=== PATIENT | male | born 1945 | race Two or more races ===

== ENCOUNTER 2024-05-26 08:57 | Emergency (ER) | payer OTHER, SELFPAY ==
[2024-05-26 09:04] VITALS: BP 148/82; PULSE 67; RESP 20; TEMP 36.7; O2SAT 98; BMI 26.9
--- NOTE | 2024-05-26 09:15 | EKG_ITS ---
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
--- NOTE | 2024-05-26 09:16 | PD.EDRME ---
Rapid Medical Screening Exam RME Arrival date/time: 05/26/24 08:57 79-year-old male presents to the emergency department complains of upper abdominal pain nausea vomiting Chief Complaint: Abdominal Pain Time Seen by Provider: 05/26/24 09:05 Vital signs: Vital Signs Temperature 98.1 F 05/26/24 09:04 Pulse Rate 67 05/26/24 09:04 Respiratory Rate 20 05/26/24 09:04 Blood Pressure 148/82 H 05/26/24 09:04 Pulse Oximetry (%) 98 05/26/24 09:04 Oxygen Delivery Method Room Air 05/26/24 09:04
[2024-05-26 10:00] VITALS: BP 138/81; PULSE 86; RESP 18; TEMP 36.7; O2SAT 99
[2024-05-26 10:06] VITALS: BP 144/88; PULSE 90; RESP 18; TEMP 37.1; O2SAT 96
[2024-05-26 10:06] LABS: Basophils # (Auto) 0.1 Thou/mm3 (0.0-0.2); Basophils % (Auto) 1 % (0-2.5); Eosinophils # (Auto) 0.1 Thou/mm3 (0.0-0.5); Eosinophils % (Auto) 1 % (0-10); Hematocrit 42.4 % (41.0-53.0); Hemoglobin 14.8 g/dL (13.5-16.0); Immature Granulocytes % (Auto) 1 % (0-0); Immature Granulocytes Auto 0.05 Thou/mm3 (0.00-0.00); Lymphocytes # (Auto) 1.1 Thou/mm3 (1.0-4.8); Lymphocytes % (Auto) 11 % (10-50); Mean Corpuscular HGB Conc 34.9 g/dl (31.0-37.0); Mean Corpuscular Hemoglobin 31.4 pg (25.0-35.0); Mean Corpuscular Volume 90 fL (80-100); Monocytes # (Auto) 0.6 Thou/mm3 (0.0-0.8); Monocytes % (Auto) 6 % (0-12); Neutrophils # (Auto) 7.9 Thou/mm3 (1.8-7.7); Neutrophils % (Auto) 81 % (37-80); Nucleated Red Blood Cell % 0 /100 WBC (0); Platelet Count 181 Thou/mm3 (140-440); RDW Standard Deviation 41.9 fL (35.1-43.9); Red Blood Count 4.72 Miln/mm3 (4.50-5.90); White Blood Count 9.7 Thou/mm3 (3.8-10.6)
--- NOTE | 2024-05-26 10:08 | EDNOTE_ITS ---
ED General RME/HPI General Chief complaint: Abdominal Pain Stated complaint: EPIGASTRIC/UPPER ABD PAIN; VOMITING YELLOW ; H/A Time Seen by Provider: 05/26/24 09:05 Arrival date/time: 05/26/24 08:57 RME / HPI RME / HPI narrative: 05/26/24 08:57 Chief complaint: Upper abdominal pain with associated nausea and vomiting HPI: Patient is a 79-year-old male with past medical history of osteoarthritis, presents to the emergency department complaints of epigastric abdominal pain with associated nausea and 2 episodes of vomiting. Patient's pain started around 3 AM this morning, which woke him up from his sleep, and was followed by 2 episodes of vomiting around 3:30 AM and 7 AM. He describes the vomitus as nonbloody nonbilious, yellowish clear in color. Pain which was initially 8/10 in intensity has not subsided completely. He denies any nausea in the ED, and endorses having an appetite. Patient's last meal was dinner yesterday, which he tolerated well. He denies any fever or other systemic symptoms at this time. He is otherwise very active and carries out activities of daily living independently. Past medical history: Osteoarthritis of bilateral knee Medication list: On [employer] herbal supplement for arthritic joint pains Past surgical history: Nil Allergies: NKFDA Social history: Marital?Status:? Tobacco?Use:?Denies ETOH?Use:?Denies Drug?Note:?Denies Social?History?Note:?Lives?at home with family Family history: Brother and father both now , of lung cancer secondary to chronic smoking. Denies any family history of sudden cardiac or strokes. Related Data Allergies Allergy/AdvReac Type Severity Reaction Status Date / Time No Known Allergies Allergy Verified 05/26/24 08:58 Review of Systems Review of Systems Narrative Review of Systems: GENERAL: Denies fevers/chills or diaphoresis. HEENT: Denies headache or visual/hearing changes. Denies nasal discharge. NEURO: Denies unusual weakness or difficulty speaking. CARDIO: Denies chest pain or palpitations. PULM: Denies SOB, coughing, or wheezing. GI: epigastric abdominal pain, N/V - now resolved. Denies C/D. Reports having BMs URO: Denies burning/itching/pain/urinary changes. MSK/EXT/SKIN: Denies joint/skeletal/muscle pain, issues/changes in upper or lower extremities, itchiness, or superficial pain. PSYCH: Cooperative, pleasant mood & affect. The rest of the review of systems is otherwise negative. ED Exam Narrative Physical exam: Constitutional Alert, oriented x3 and comfortable HEENT Vision grossly intact. Patent nares. Trachea midline. Respiratory Chest normal on inspection and clear to auscultation bilaterally. Cardiovascular S1 and S2 audible, RRR. No murmurs or carotid bruit. No gross JVD. Abdominal Soft and non tender to palpation in all quadrants. BS + Genitourinary No bladder tenderness, no flank pain. Normal to palpation. Musculoskeletal Extremities tone within normal limits. No LE edema. Neurological CN II - XII grossly intact. Extremity motor and sensation grossly intact. Skin Warm, dry and intact. No apparent lesions. Psychiatric Patient has a good affect, is cooperative. Course Quality Measures none Orders Category Date Time Status EKG (ED ONLY) *Do not use* NOW Care 05/26/24 09:16 Completed EKG (ED Only) Stat Exams 05/26/24 09:15 Ordered US gall bladder Stat Exams 05/26/24 09:15 Stop Req CBC Stat Lab 05/26/24 09:54 Completed Comprehensive Metabolic Panel Stat Lab 05/26/24 09:54 Completed Lipase Stat Lab 05/26/24 09:54 Completed Troponin I Stat Lab 05/26/24 09:54 Completed UA, C/S IF [Urinalysis, C/S if Indicated] Stat Lab 05/26/24 10:34 Completed Vital Signs Vital signs: Vital Signs Temperature 98.1 F 05/26/24 09:04 Pulse Rate 67 05/26/24 09:04 Respiratory Rate 20 05/26/24 09:04 Blood Pressure 148/82 H 05/26/24 09:04 Pulse Oximetry (%) 98 05/26/24 09:04 Oxygen Delivery Method Room Air 05/26/24 09:04 [facility] Patient data External records reviewed:: None Clinical information provided by:: patient and family Social determinants that could affect healthcare access:: none Patient has the following chronic illnesses:: Osteoarthritis of bilateral knee How is presenting disease/condition affected by chronic disease/condition?: e xacerbated by Evaluation data The following diagnostics were reviewed and interpreted by me:: lab results, radiology exam(s) and EKG tracing(s) Lab and/or radiology exams considered but not ordered:: CT Abdo Interpretation Summary: Abdominal pain likely in the setting of [employer] Fermín herbal supplement, which has been marked by FDA for containing heavy doses of NSAID and glucocorticoid. Patient was counseled extensively on discontinuing but said supplement, and follow-up with PCP within 1 week from discharge Medications Medications considered but not ordered:: CT Abdomen Medication administrations:: P.O. route only Consultations Consultation(s) initiated? (list below): No Consultation #1 (Physician, Specialty, Details): None Diagnosis Differential Diagnosis ED Complaint MDM: Gastric ulcer Most likely diagnosis given after review of the tests above:: Gastritis secondary to [employer]ri Fermín herbal supplement containing heavy doses of NSAIDs and glucocorticoid - multiple FDA warnings Will discharge on Omeprazole 40mg daily x 4 weeks Admission Indicated Admission indicated?: not indicated Explain why admission is indicated or not indicated:: Abdominal pain resolved, patient completely asymptomatic in the ED Admission Request Was there a request for admission?: No Disposition Plan Disposition Plan: Discharge Discharge Attestation Discharge Attestation: The patient and all family members were given an opportunity to ask questions and understood the discharge instructions. Discharge instructions specifically effects, indications for sooner follow up or return to the emergency department, and the expected course of current diagnosis. Patient condition: Stable Medical Decision Making MDM Narrative MDM Narrative: Patient is a 79-year-old male with past medical history of osteoarthritis, who presented with epigastric abdominal pain with 2 episodes of vomiting. All imaging and laboratory workup unremarkable. Diagnosis: Gastritis secondary to Artri Fermín herbal supplement containing heavy doses of NSAIDs and glucocorticoid - multiple FDA warnings Plan: Will discharge on Omeprazole 40mg daily x 4 weeks Recommend close follow-up with PCP and immediate discontinuation of the medication. Differential Diagnosis Differential Diagnosis: Gastric ulcer Lab Data 05/26/24 09:54 05/26/24 09:54 Labs: Lab Results 05/26/24 05/26/24 Range/Units 09:54 10:34 WBC 9.7 (3.8-10.6) Thou/mm3 RBC 4.72 (4.50-5.90) Miln/mm3 Hgb 14.8 (13.5-16.0) g/dL Hct 42.4 (41.0-53.0) % MCV 90 (80-100) fL MCH 31.4 (25.0-35.0) pg MCHC 34.9 (31.0-37.0) g/dl RDW Std Deviation 41.9 (35.1-43.9) fL Plt Count 181 (140-440) Thou/mm3 Neut % (Auto) 81 H (37-80) % Lymph % (Auto) 11 (10-50) % [place] % (Auto) 6 (0-12) % Eos % (Auto) 1 (0-10) % Baso % (Auto) 1 (0-2.5) % Neut # (Auto) 7.9 H (1.8-7.7) Thou/mm3 Lymph # (Auto) 1.1 (1.0-4.8) Thou/mm3 [place] # (Auto) 0.6 (0.0-0.8) Thou/mm3 Eos # (Auto) 0.1 (0.0-0.5) Thou/mm3 Baso # (Auto) 0.1 (0.0-0.2) Thou/mm3 Immature Gran # (Auto) 0.05 H (0.00-0.00) Thou/mm3 Absolute Nucleated RBC 0.00 (0.00-0.00) Thou/mm3 Immature Gran % 1 H (0-0) % Nucleated RBC % 0 (0) /100 WBC Sodium 138 (136-145) mMol/L Potassium 3.7 (3.4-5.1) mMol/L Chloride 104 (98-107) mMol/L Carbon Dioxide 26.1 (20.0-31.0) mMol/L Anion Gap 8 (7-16) BUN 10 (9-23) mg/dL Creatinine 1.2 (0.6-1.3) mg/dL Estim Creat Clear Calc 45.0 L (>60) mL/min eGFR > 60 (60 - ) See Note BUN/Creatinine Ratio 8 L (12-20) Ratio Glucose 120 H (74-106) mg/dL Calculated Osmolality 275 (275-295) Calcium 10.0 (8.3-10.6) mg/dL Corrected Calcium 10.0 (8.5-10.1) mg/dL Total Bilirubin 0.5 (0.3-1.2) mg/dL AST 23 (0-34) U/L ALT 20 (10-49) U/L Alkaline Phosphatase 93 (46-116) U/L Troponin I < 0.002 (0.0-0.045) ng/mL Total Protein 7.4 (5.7-8.2) gm/dL Albumin 4.2 (3.4-4.8) gm/dL Globulin 3.2 (2.3-3.5) gm/dL Albumin/Globulin Ratio 1.3 (1.2-2.2) Lipase 66 H (12-53) U/L Ur Collection Type Clean Catch Urine Color Yellow (Lt Yel-Yel) Urine Clarity Clear (Clear/Hazy) Urine pH 5.5 (5.0-7.0) Ur Specific [place] 1.026 (1.001-1.035) Urine Protein Trace (Neg - Trace) Urine Glucose (UA) Negative (Negative) Urine Ketones Negative (Negative) Urine Blood Negative (Negative) Urine Nitrite Negative (Negative) Urine Bilirubin Negative (Negative) Urine Urobilinogen (Auto) Negative (0.0-1.0) mg/dL Ur Leukocyte Esterase Negative (Negative) Urine RBC 1 (0-3) /hpf Urine WBC 1 (0-5) /hpf Ur Squamous Epith Cells < 1 (0-5) /hpf Urine Bacteria None (None) Hyaline Casts < 1 (0-1) /hpf Ur Culture Indicated? Not Indicated Discharge Plan Plan Patient Disposition: HOME (Self Care) Patient condition on transfer: Stable Prescriptions/Referrals Referrals: Darío Byrnes MD [Primary Care Provider] - In 1 week Problem List Clinical Impression: Abdominal pain Patient/Caregiver Discharge Instructions Discharge Activity: resume usual activities Education Materials: Abdominal Pain, Medicine for Pain Print Language: Bermudian Stand Alone Forms: Lawanda Award Info., Patient Portal Info Letter
[2024-05-26 10:22] LABS: Alanine Aminotransferase 20 U/L (10-49); Albumin, Serum 4.2 gm/dL (3.4-4.8); Albumin/Globulin Ratio 1.3 (1.2-2.2); Alkaline Phosphatase 93 U/L (46-116); Anion Gap 8 (7-16); Aspartate Amino Transferase 23 U/L (0-34); BUN/Creatinine Ratio 8 Ratio (12-20); Bilirubin,Total 0.5 mg/dL (0.3-1.2); Blood Urea Nitrogen 10 mg/dL (9-23); Carbon Dioxide 26.1 mMol/L (20.0-31.0); Chloride 104 mMol/L (98-107); Creatinine (Component) 1.2 mg/dL (0.6-1.3); Globulin 3.2 gm/dL (2.3-3.5); Glucose 120 mg/dL (74-106); Lipase 66 U/L (12-53); Osmolality,Calculated 275 (275-295); Potassium 3.7 mMol/L (3.4-5.1); Sodium 138 mMol/L (136-145); Total Protein 7.4 gm/dL (5.7-8.2); Troponin I < 0.002 ng/mL (0.0-0.045); eGFR > 60 See Note
[2024-05-26 10:39] LABS: Collection Type, Urine Clean Catch
[2024-05-26 10:50] LABS: Bilirubin,Urine Negative (Negative); Blood,Urine Negative (Negative); Clarity,Urine Clear (Clear/Hazy); Color,Urine Yellow (Lt Yel-Yel); Culture Indicated,Urine Not Indicated; Glucose, Urine Negative (Negative); Hyaline Casts,Urine < 1 /hpf (0-1); Ketones,Urine Negative (Negative); Leukocyte Esterase,Urine Negative (Negative); Nitrite,Urine Negative (Negative); PH,Urine 5.5 (5.0-7.0); Protein,Urine Trace (Neg - Trace); RBC,Urine 1 /hpf (0-3); Specific Gravity,Urine 1.026 (1.001-1.035); Squamous Epithelial Cell,Urine < 1 /hpf (0-5); Urobilinogen,Urine Negative mg/dL (0.0-1.0); WBC,Urine 1 /hpf (0-5)
[2024-05-26 11:30] VITALS: BP 141/77; PULSE 77; RESP 16; TEMP 36.7; O2SAT 99
== END 2024-05-26 11:31 | disposition home or self-care (01) ==
PROVIDERS: Nurse Practitioner Primary Care; Emergency Provider Student in an Organized Health Care Education/Training Program; PCP Family Medicine
DX: R10.13 Epigastric pain (principal); R11.2 Nausea with vomiting, unspecified; M19.90 Unspecified osteoarthritis, unspecified site
CPT/HCPCS: 36415; 80053; 81001; 83690; 84484; 85025; 93005; 99284

== ENCOUNTER 2025-01-17 08:54 | Emergency (ER) | payer OTHER, SELFPAY ==
[2025-01-17 08:55] VITALS: BMI 22.2
[2025-01-17 09:07] VITALS: BP 142/83; PULSE 83; RESP 18; TEMP 36.6; O2SAT 98
[2025-01-17] MEDS: MG HYD/AL HYD/SIME (Maalox Reg) SUSP 30 ML UDC PO (10:21)
[2025-01-17] MEDS: LIDOCAINE VISCOUS 2% 15 ML UDC 10 ML PO (10:21)
--- NOTE | 2025-01-17 10:21 | PD.EDRME ---
Rapid Medical Screening Exam E Arrival date/time: 01/17/25 08:54 This is a 79-year-old male that comes into the emergency room with complaints of abdominal pain. Patient states he had a history of acid reflux and he thinks is just acid reflux bothering him. Patient has no nausea vomiting. Patient complains of burning in his throat and in his stomach. Patient states that he was having urinary issues but started taking some prostate supplements and is doing better. I have greeted and performed a focused initial assessment of this patient. Initial appropriate labs ordered at this time. A comprehensive ED assessment and evaluation of the patient and analysis of all test and completion of medical decision making process will be conducted by additional ED provider. Chief Complaint: Abdominal Pain Time Seen by Provider: 01/17/25 09:11 Vital signs: Vital Signs Temperature 97.8 F 01/17/25 09:07 Pulse Rate 83 01/17/25 09:07 Respiratory Rate 18 01/17/25 09:07 Blood Pressure 142/83 H 01/17/25 09:07 Pulse Oximetry (%) 98 01/17/25 09:07 Oxygen Delivery Method Room Air 01/17/25 09:07
[2025-01-17 10:22] LABS: Basophils # (Auto) 0.0 Thou/mm3 (0.0-0.2); Basophils % (Auto) 1 % (0-2.5); Eosinophils # (Auto) 0.2 Thou/mm3 (0.0-0.5); Eosinophils % (Auto) 2 % (0-10); Hematocrit 41.2 % (41.0-53.0); Hemoglobin 14.5 g/dL (13.5-16.0); Immature Granulocytes Auto 0.01 Thou/mm3 (0.00-0.00); Lymphocytes # (Auto) 1.5 Thou/mm3 (1.0-4.8); Lymphocytes % (Auto) 21 % (10-50); Mean Corpuscular HGB Conc 35.2 g/dl (31.0-37.0); Mean Corpuscular Hemoglobin 31.8 pg (25.0-35.0); Mean Corpuscular Volume 90 fL (80-100); Monocytes # (Auto) 0.5 Thou/mm3 (0.0-0.8); Monocytes % (Auto) 7 % (0-12); Neutrophils # (Auto) 4.9 Thou/mm3 (1.8-7.7); Neutrophils % (Auto) 69 % (37-80); Nucleated Red Blood Cell # 0.00 Thou/mm3 (0.00-0.00); Nucleated Red Blood Cell % 0 /100 WBC (0); Platelet Count 218 Thou/mm3 (140-440); RDW Standard Deviation 43.1 fL (35.1-43.9); Red Blood Count 4.56 Miln/mm3 (4.50-5.90); White Blood Count 7.1 Thou/mm3 (3.8-10.6)
[2025-01-17 10:25] LABS: Collection Type, Urine Voided; Squamous Epithelial Cell,Urine 0 /hpf (0-5)
[2025-01-17 10:58] LABS: Alanine Aminotransferase < 7 U/L (10-49); Albumin, Serum 4.1 gm/dL (3.4-4.8); Albumin/Globulin Ratio 1.3 (1.2-2.2); Alkaline Phosphatase 108 U/L (46-116); Anion Gap 11 (7-16); Aspartate Amino Transferase 12 U/L (0-34); BUN/Creatinine Ratio 7 Ratio (12-20); Bilirubin,Total 0.7 mg/dL (0.3-1.2); Blood Urea Nitrogen 7 mg/dL (9-23); Calcium 10.2 mg/dL (8.3-10.6); Calcium (Corrected) 10.2 mg/dL (8.5-10.1); Carbon Dioxide 26.1 mMol/L (20.0-31.0); Chloride 104 mMol/L (98-107); Creatinine (Component) 1.0 mg/dL (0.6-1.3); Estimated Creatinine Clearance 53.0 mL/min (>60); Globulin 3.2 gm/dL (2.3-3.5); Glucose 97 mg/dL (74-106); Lipase 49 U/L (12-53); Osmolality,Calculated 279 (275-295); Potassium 3.9 mMol/L (3.4-5.1); Sodium 141 mMol/L (136-145); Total Protein 7.3 gm/dL (5.7-8.2); eGFR > 60 See Note
[2025-01-17 11:13] VITALS: BP 127/68; PULSE 80; RESP 17; TEMP 36.4; O2SAT 98
[2025-01-17 11:13] LABS: Bilirubin,Urine Negative (Negative); Blood,Urine Negative (Negative); Clarity,Urine Clear (Clear/Hazy); Color,Urine Yellow (Lt Yel-Yel); Culture Indicated,Urine Not Indicated; Glucose, Urine Negative (Negative); Ketones,Urine Negative (Negative); Leukocyte Esterase,Urine Negative (Negative); Nitrite,Urine Negative (Negative); PH,Urine 5.5 (5.0-7.0); Protein,Urine Negative (Neg - Trace); RBC,Urine 5 /hpf (0-3); Specific Gravity,Urine 1.020 (1.001-1.035); Urobilinogen,Urine Negative mg/dL (0.0-1.0); WBC,Urine 1 /hpf (0-5)
[2025-01-17 11:21] LABS: Sperm,Urine Present
--- NOTE | 2025-01-17 11:53 | XR_ITS ---
Examination: CT abdomen with intravenous contrast CT pelvis with intravenous contrast 2-D coronal reconstructions 2-D sagittal reconstructions Date and time of exam:January 17, 2025 1313 hrs. Indications: Left lower abdominal pain and nausea beginning today.. CTDI: vol (mGy) 6.37. DLP: (mGycm) 321. Technique: Multiple axial sections of the abdomen and pelvis have been obtained. 64 slice high-resolution scanner used. 3 mm axial sections have been obtained, post intravenous injection 60 cc Isovue-370. 2-D sagittal, coronal reconstructions obtained. Low dose protocols were performed. One or more of the following dose reduction techniques were used; automated exposure control, adjustment of the mA and/or KV according to patient size, use of iterative reconstruction technique. Findings: No focal liver or splenic lesions. Cholelithiasis with gallbladder sludge. No pancreatic or adrenal mass. No renal or ureteral calculi, no hydronephrosis. Aorta normal size. Normal appendix. No bowel obstruction No diverticulitis Mild small bowel ileus Prostatomegaly, transverse dimension 6.4 cm with irregular contour Urinary bladder wall anteriorly is thickened up to 10 mm Fat-containing right inguinal hernia Advanced degenerative disc disease L4-L5 Impression: Cholelithiasis, gallbladder sludge Negative for pancreatitis. No renal or ureteral calculi, no hydronephrosis. Mild small bowel ileus. Negative for diverticulitis or bowel obstruction. Significant prostatomegaly, irregular contour, recommend correlation with PSA Abnormal urinary bladder wall thickening, consider outflow tract obstruction secondary to prostatomegaly, early bladder carcinoma not excluded, recommend urology consultation
--- NOTE | 2025-01-17 11:54 | PD.EDABDPN ---
ED Abdominal Pain RME/HPI General Chief Complaint: Abdominal Pain Stated complaint: ABD PAIN x 2 MONTHS Time seen by provider: 01/17/25 09:11 Arrival date/time: 01/17/25 08:54 RME / HPI RME / HPI narrative: 79-year-old male that comes into the emergency room with complaints of abdominal pain. Patient states he had a history of acid reflux and he thinks is just acid reflux bothering him. Patient has no nausea vomiting. Patient complains of burning in his throat and in his stomach. Patient states that he was having urinary issues but started taking some prostate supplements and is doing better. Patient also complaining of left lower quadrant pain, has been ongoing for the last few days, severity moderate. No fever. Was seen by PCP last week and was prescribed a laxative. Related Data Previous Rx's ?Medication ?Instructions ?Recorded celecoxib 100 mg capsule 100 mg PO BID PRN pain #14 caps 05/26/24 pantoprazole 40 mg tablet,delayed 40 mg PO QDAY #20 tabs 01/17/25 release (Protonix) tamsulosin 0.4 mg capsule (Flomax) 0.4 mg PO QDAY #30 caps 01/17/25 Allergies Allergy/AdvReac Type Severity Reaction Status Date / Time No Known Allergies Allergy Verified 01/17/25 08:56 Review of Systems Review of Systems Narrative Review of Systems: Review of system reviewed and within normal limits except mentioned in HPI ED Exam Narrative Physical exam: VITAL SIGNS: Reviewed. GENERAL APPEARANCE: Alert and interactive, follows commands, no acute distress, HEAD AND FACE: Non-traumatic. ENT: PERRL, pink conjunctivitis, eyelid no trauma, Mucous membrane moist. NECK: Supple, nontender, no nuchal rigidity. CHEST: No tenderness, no crepitus, no paradoxical movement, no retractions. LUNGS: Clear, well ventilated, symmetric, no rales, no wheezing, no ronchi, no stridor, good breath sounds bilaterally. HEART: Regular rate, regular rhythm, no murmur, no gallops. ABDOMEN: Soft, positive bowel sounds, nondistended, no guarding, left lower quadrant tenderness on deep palpation., no rebound, no masses, RECTAL: Deferred. GENITAL: Deferred. NEUROLOGICAL: Gross motor function intact sensory function intact, Appropriate for age. MUSCULOSKELETAL: low back nontender, full range of motion. EXTREMITIES: Nontender, full range of motion. SKIN: Color pink, dry, no rash, no lacerations, no abrasions, no contusions. LYMPHATICS: Deferred. Course Quality Measures none Orders Category Date Time Status CT Screening NOW Care 01/17/25 11:53 Active EKG (ED ONLY) *Do not use* NOW Care 01/17/25 14:[address] abdomen pelvis w con Stat Exams 01/17/25 11:53 Completed EKG (ED Only) Stat Exams 01/17/25 14:58 Draft CBC Stat Lab 01/17/25 09:41 Completed Comprehensive Metabolic Panel Stat Lab 01/17/25 09:41 Completed Lipase Stat Lab 01/17/25 09:41 Completed Urinalysis, C/S if Indicated Stat Lab 01/17/25 09:30 Completed Lidocaine 2% Viscous [Xylocaine 2% Viscous] Med 01/17/25 09:20 Discontinued 10 ml PO X1 ONE Magnesium Citrate Liqd [Citrate of Magnesia Liqd] Med 01/17/25 11:53 Discontinued 300 ml PO X1 ONE mg Hyd/Al Hyd/Timmy Susp [Maalox Susp] Med 01/17/25 09:20 Discontinued 30 ml PO X1 ONE Vital Signs Vital signs: Vital Signs Temperature 97.8 F 01/17/25 09:07 Pulse Rate 83 01/17/25 09:07 Respiratory Rate 18 01/17/25 09:07 Blood Pressure 142/83 H 01/17/25 09:07 Pulse Oximetry (%) 98 01/17/25 09:07 Oxygen Delivery Method Room Air 01/17/25 09:07 Abdominal Pain MDM MDM Narrative MDM Narrative:: 79-year-old male that comes into the emergency room with complaints of abdominal pain. Patient states he had a history of acid reflux and he thinks is just acid reflux bothering him. Patient has no nausea vomiting. Patient complains of burning in his throat and in his stomach. Patient states that he was having urinary issues but started taking some prostate supplements and is doing better. Patient also complaining of left lower quadrant pain, has been ongoing for the last few days, severity moderate. No fever. Was seen by PCP last week and was prescribed a laxative. EKG showed sinus rhythm, ventricular rate of 76 bpm, no ST segment elevation depression noted. Patient's laboratory workup all came back normal including urinalysis which is also normal. CT scan of the abdomen and pelvis showed Cholelithiasis, gallbladder sludge Negative for pancreatitis. No renal or ureteral calculi, no hydronephrosis. Mild small bowel ileus. Negative for diverticulitis or bowel obstruction. Significant prostatomegaly, irregular contour, recommend correlation with PSA Abnormal urinary bladder wall thickening, consider outflow tract obstruction secondary to prostatomegaly, early bladder carcinoma not excluded, recommend urology consultation Results discussed with the patient including follow-up close with general surgeon also regarding cholelithiasis, currently patient is not having any biliary colic.. Patient will also see his urologist regarding enlarged prostate. Patient stable for discharge home. Patient data External records reviewed:: None Clinical information provided by:: patient Social determinants that could affect healthcare access:: none Patient has the following chronic illnesses:: Hypertension How is presenting disease/condition affected by chronic disease/condition?: uneffected by Evaluation data The following diagnostics were reviewed and interpreted by me:: lab results, radiology exam(s) and EKG tracing(s) Lab and/or radiology exams considered but not ordered:: None Interpretation Summary: See results and MDM Medications / Prescriptions Medications or Prescriptions considered but not ordered:: None Medication administrations:: Medication Administration History Discontinued Medications Al Hydrox/Mg Hydrox/Simethicone (Mg Hyd/Al Hyd/Timmy (Maalox Reg) Susp 30 Ml Udc) 30 ml PO X1 ONE Stop: 01/17/25 09:21 Last Admin: 01/17/25 10:21 Dose: 30 ml Documented By: GLORIA Lidocaine HCl (Lidocaine Viscous 2% 15 Ml Udc) 10 ml PO X1 ONE Stop: 01/17/25 09:21 Last Admin: 01/17/25 10:21 Dose: 10 ml Documented By: Palomo Magnesium Citrate (Magnesium Citrate 300 Ml Btl) 300 ml PO X1 ONE Stop: 01/17/25 11:54 Last Admin: 01/17/25 12:53 Dose: 300 ml Documented By: ADEOLA Magnesium citrate, Maalox Consultations Consultation(s) initiated? (list below): No Diagnosis Differential diagnosis abdominal pain: abdominal pain Most likely diagnosis given after review of the tests above:: Cholelithiasis, enlarged prostate Admission Indicated Admission indicated?: not indicated Explain why admission is indicated or not indicated:: Stable Admission Request Was there a request for admission?: No Disposition Plan Disposition Plan: Discharge Discharge Attestation Discharge Attestation: The patient was given an opportunity to ask questions and understood the discharge instructions. Discharge instructions specifically effects, indications for sooner follow up or return to the emergency department, and the expected course of current diagnosis. Patient condition: Stable Discharge Plan Plan Patient Disposition: HOME (Self Care) Discharge Disposition comment: Stable Prescriptions/Referrals Prescriptions/Med Rec: New tamsulosin [Flomax] 0.4 mg capsule 0.4 mg PO QDAY Qty: 30 0RF pantoprazole [Protonix] 40 mg tablet,delayed release (DR/EC) 40 mg PO QDAY Qty: 20 0RF No Action celecoxib 100 mg capsule 100 mg PO BID PRN (Reason: pain) Qty: 14 0RF Referrals: Jacek Wilkins MD [Primary Care Provider, Family Practice] - In 1 week Problem List Clinical Impression: Abdominal pain, Enlarged prostate, Cholelithiasis Patient/Caregiver Discharge Instructions Discharge Activity: activity as tolerated Education Materials: Abdominal Pain, Treating Gallstones Additional Instructions: Thank you for the opportunity for serving you today. You are stable for discharged . You are advised to: Follow-up with your urologist next week As your PCP also to refer you to a general surgeon regarding your cholelithiasis. Return to ED for worsening of symptoms Increase oral fluids Take medication as prescribed Please avoid eating fried, greasy food and fried foods. Print Language: Bangladeshi Stand Alone Forms: Lawanda Award Info., Patient Portal Info Letter ALVARO/AMARI Supervising Physician ALVARO/AMARI Supervising Physician: MD Kishor
[2025-01-17] MEDS: MAGNESIUM CITRATE 300 ML BTL PO (12:53)
--- NOTE | 2025-01-17 13:11 | PC.NURSE ---
Pt in CT at this time
[2025-01-17 13:19] VITALS: BP 124/69; PULSE 75; RESP 16; TEMP 36.4; O2SAT 97
--- NOTE | 2025-01-17 14:58 | EKG_ITS ---
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
[2025-01-17 15:13] VITALS: BP 134/77; PULSE 83; RESP 18; TEMP 36.6; O2SAT 98
== END 2025-01-17 16:04 | disposition home or self-care (01) ==
PROVIDERS: Nurse Practitioner Family; Emergency Provider Emergency Medicine; PCP Family Medicine
DX: K80.20 Calculus of gallbladder without cholecystitis without obstruction (principal); N40.0 Benign prostatic hyperplasia without lower urinary tract symptoms
CPT/HCPCS: 36415; 74177; 80053; 81001; 83690; 85025; 93005; 99283; A4649; J3490; Q9967; A9270

== ENCOUNTER → 2025-02-13 | Outpatient (CLI) | payer OTHER, SELFPAY ==
--- NOTE | 2025-02-13 14:30 | XR_ITS ---
Examination: Abdomen sonogram, complete Date and time of exam: February 13, 2025, 1409 hours INDICATIONS: Cholelithiasis with gallbladder sludge on CT examination 01/17/2025. Technique: Multiple real-time grayscale transabdominal sonographic images of the abdomen have been obtained. Findings: Multiple gallstones Gallbladder wall 0.3 cm no edema Common bile duct 0.3 cm Pancreatic head 2.0 cm Mid and distal aorta visualized not enlarged. Liver 12.2 cm fatty infiltration Normal hepatopedal portal venous flow Patent IVC Right kidney 12.2 cm cortex 1.1 cm Left kidney 8.8 cm cortex 1.6 cm Moderate renal scar formation Spleen 11.3 cm IMPRESSION: Cholelithiasis, negative for cholecystitis Moderate renal scar formation Bilateral renal cortical thinning
== END | disposition home or self-care (01) ==
PROVIDERS: PCP Family Medicine; Referring Provider Family Medicine; Visit Provider Family Medicine
DX: K80.20 Calculus of gallbladder without cholecystitis without obstruction (principal); N28.89 Other specified disorders of kidney and ureter
CPT/HCPCS: 76700

== ENCOUNTER 2025-03-06 05:40 | Day surgery (SDC) | payer OTHER, SELFPAY ==
--- NOTE | 2025-03-05 07:00 | EKG_ITS ---
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
[2025-03-05 08:52] VITALS: BMI 21.4
[2025-03-05 09:36] LABS: Collection Type, Urine Clean Catch; Squamous Epithelial Cell,Urine 0 /hpf (0-5)
[2025-03-05 09:48] LABS: Basophils # (Auto) 0.0 Thou/mm3 (0.0-0.2); Basophils % (Auto) 1 % (0-2.5); Eosinophils # (Auto) 0.1 Thou/mm3 (0.0-0.5); Eosinophils % (Auto) 1 % (0-10); Hematocrit 41.4 % (41.0-53.0); Hemoglobin 14.1 g/dL (13.5-16.0); Immature Granulocytes Auto 0.02 Thou/mm3 (0.00-0.00); Lymphocytes # (Auto) 1.2 Thou/mm3 (1.0-4.8); Lymphocytes % (Auto) 18 % (10-50); Mean Corpuscular HGB Conc 34.1 g/dl (31.0-37.0); Mean Corpuscular Hemoglobin 29.9 pg (25.0-35.0); Mean Corpuscular Volume 88 fL (80-100); Monocytes # (Auto) 0.4 Thou/mm3 (0.0-0.8); Monocytes % (Auto) 7 % (0-12); Neutrophils # (Auto) 4.7 Thou/mm3 (1.8-7.7); Neutrophils % (Auto) 73 % (37-80); Nucleated Red Blood Cell # 0.00 Thou/mm3 (0.00-0.00); Nucleated Red Blood Cell % 0 /100 WBC (0); Platelet Count 203 Thou/mm3 (140-440); RDW Standard Deviation 42.5 fL (35.1-43.9); Red Blood Count 4.72 Miln/mm3 (4.50-5.90); White Blood Count 6.5 Thou/mm3 (3.8-10.6)
[2025-03-05 09:53] LABS: Bilirubin,Urine Negative (Negative); Blood,Urine Negative (Negative); Clarity,Urine Clear (Clear/Hazy); Color,Urine Yellow (Lt Yel-Yel); Glucose, Urine Negative (Negative); Ketones,Urine Trace (Negative); Leukocyte Esterase,Urine Negative (Negative); Nitrite,Urine Negative (Negative); PH,Urine 5.5 (5.0-7.0); Protein,Urine Trace (Neg - Trace); RBC,Urine 4 /hpf (0-3); Specific Gravity,Urine 1.022 (1.001-1.035); Urobilinogen,Urine Negative mg/dL (0.0-1.0); WBC,Urine 1 /hpf (0-5)
[2025-03-05 09:58] LABS: Partial Thromboplastin Time 33.0 Seconds (22.0-36.0)
[2025-03-05 10:11] LABS: Alanine Aminotransferase < 7 U/L (10-49); Albumin, Serum 4.5 gm/dL (3.4-4.8); Albumin/Globulin Ratio 1.5 (1.2-2.2); Alkaline Phosphatase 97 U/L (46-116); Anion Gap 10 (7-16); Aspartate Amino Transferase 16 U/L (0-34); BUN/Creatinine Ratio 6 Ratio (12-20); Bilirubin,Total 0.8 mg/dL (0.3-1.2); Blood Urea Nitrogen 6 mg/dL (9-23); Calcium 9.6 mg/dL (8.3-10.6); Calcium (Corrected) 9.6 mg/dL (8.5-10.1); Carbon Dioxide 26.7 mMol/L (20.0-31.0); Chloride 100 mMol/L (98-107); Creatinine (Component) 1.0 mg/dL (0.6-1.3); Estimated Creatinine Clearance 51.1 mL/min (>60); Globulin 3.0 gm/dL (2.3-3.5); Glucose 104 mg/dL (74-106); Osmolality,Calculated 271 (275-295); Potassium 4.0 mMol/L (3.4-5.1); Sodium 137 mMol/L (136-145); Total Protein 7.5 gm/dL (5.7-8.2); eGFR > 60 See Note
[2025-03-06] VITALS (7 sets, daily range): BP systolic 143–155; BP diastolic 65–99; PULSE 78–87; RESP 14–20; TEMP 36.2–37.3; O2SAT 99–100; BMI 21.1
[2025-03-06] MEDS: RINGERS LACTATED 1000 ML 1,000 ML 60 ML IV (07:03)
--- NOTE | 2025-03-06 09:49 | ESOP_ITS ---
Date of Procedure 03/06/25 Pre Op Diagnosis Cholecystitis cholelithiasis Post Op Diagnosis Same. Procedure Laparoscopic cholecystectomy on March 06, 2025 Findings This patient had a distended gallbladder with adhesions and cystic duct had a stones which were moved up back into the gallbladder before clipping the cystic duct. There were no other remarkable findings. Procedure Description In the preop area the procedure was discussed with the patient including risks benefits and alternatives. The risks include possible laparotomy, bleeding, infection bile duct injury and bile leak. Patient may require ERCP for retained stone or a bile leak. The anesthesia risks are to be explained to the patient by the anesthesiologist. Informed consent was obtained. The patient was positioned supine on the operating table and general anesthesia was administered in a satisfactory manner by the anesthesiologist. A timeout procedure was carried out. The patient is positioned in the reverse Trendelenburg position with the right side up. Orogastric tube is introduced into the stomach to decompress the stomach. Prophylactic antibiotics were given in timely manner. Antiembolism measures were taken. The abdomen chest and groin regions were prepped and draped in usual manner. A supraumbilical vertical incision was made and deepened through the layers of abdominal wall and open laparoscopic procedure is carried out. The balloon catheter was introduced and pneumoperitoneum is achieved. A 30? scope was used. Under direct vision right subxiphoid, midclavicular and anterior axillary line trochars were introduced. The gallbladder is then lifted up and a laparoscopic lysis of adhesions was carried out. The gallbladder is freed from the adhesions and the vipin hepatis is exposed. The triangle of Calot is gently dissected and the artery to cystic duct is divided with harmonic ultrasonic reshma. There is a significant amount of scar chronic scar tissue in the vipin hepatis that made the dissection and procedures much slower. The posterior view of safety was achieved. The cystic artery and cystic duct are identified individually and they were ligated close to the gallbladder with hemoclips. There was an accessory cystic artery as well as multiple branches of the cystic artery proper. They were all individually controlled and divided. The cystic artery and the cystic duct are divided between the hemoclips close to the gallbladder. Care was taken to avoid tenting of the common duct. There is a significant length of cystic duct stump towards the common bile duct. The gallbladder is dissected and lifted from the liver bed using harmonic ultrasonic reshma. The gallbladder bed hemostasis is achieved. The gallbladder is retrieved out of the peritoneal cavity in a specimen bag. The balloon cannula is reintroduced and pneumoperitoneum is reestablished. The peritoneal cavity is thoroughly irrigated with sterile saline solution and hemostasis again ascertained. All the cannulas are removed under direct vision there is no bleeding from the cannula sites. The linea alba repair is carried out with the 0 Vicryl continuous suture. The subcutaneous tissues approximated by a 3-0 chromic and skin by 4-0 monocril subcuticular stitch. For the rest of the trocar site incisions are closed in 2 layers with a 3-0 chr omic and 4-0 monocril subcuticular stitch. Steri-Strips are applied. Sterile dressings are applied. Complications none. Patient is transferred to the recovery room in a satisfactory condition. Anesthesia GETA Drains None. Implants None. Pathology / specimen Other (Gallbladder with contents) Estimated Blood Loss 20 Condition Stable Disposition PACU Surgeon Cj Vogel MD Surgical Staff Operation Date: 03/06/25 07:30 Case Staff PRODUCTION SUPPORT ENGINEER: Laron Oh RN First Assistant: Kwesi Boucher surgical scheduler [place] HANSEN relationship associate
--- NOTE | 2025-03-06 09:55 | SUR.PHASEI ---
pt received from OR in recovery bay 5. pt asleep but responds to voice, breathing unlabored on oxymask 8l. v/s stable. pt dressing to abd x4 cdi. report received from [place] HANSEN and Laron DESIR.
--- NOTE | 2025-03-06 10:55 | SUR.PHASEII ---
pt able to tolerate oral fluids without difficulty swallowing or nausea/vomiting.
--- NOTE | 2025-03-06 10:58 | SUR.PHASEII ---
pt awake and alert, breathing unlabored on room air. v/s stable. pt dressing to abd x4 cdi. pt able to ambulate to wheelchair with steady gait. d/c instructions given with and son Gino in room, all questions answered. pt d/c via wheelchair with all belongings.
== END 2025-03-06 10:58 | disposition home or self-care (01) ==
PROVIDERS: PCP Family Medicine; Referring Provider Specialist; Visit Provider Specialist
PROC: 0FT44ZZ Resection of Gallbladder, Percutaneous Endoscopic Approach (ICD-10-PCS; CPT 47562; principal; 2025-03-06 07:30)
DX: K80.10 Calculus of gallbladder with chronic cholecystitis without obstruction (principal); Z01.810 Encounter for preprocedural cardiovascular examination; N40.0 Benign prostatic hyperplasia without lower urinary tract symptoms
CPT/HCPCS: 47562; 36415; 80053; 81001; 85025; 85730; 93005; A4217; A4649; J0131; J0690; J1100; J2371; J2405; J2704; J3010; J3490; J7120

== ENCOUNTER → 2025-03-11 | Outpatient (CLI) | payer OTHER, SELFPAY ==
[2025-03-11 07:06] VITALS: BMI 20.9
[2025-03-11 07:42] LABS: Collection Type, Urine Clean Catch; Squamous Epithelial Cell,Urine 0 /hpf (0-5)
[2025-03-11 08:06] LABS: Bilirubin,Urine Negative (Negative); Blood,Urine Negative (Negative); Clarity,Urine Clear (Clear/Hazy); Color,Urine Yellow (Lt Yel-Yel); Glucose, Urine Negative (Negative); Ketones,Urine 1+ (Negative); Leukocyte Esterase,Urine Negative (Negative); Nitrite,Urine Negative (Negative); PH,Urine 5.5 (5.0-7.0); Protein,Urine Trace (Neg - Trace); RBC,Urine 1 /hpf (0-3); Specific Gravity,Urine 1.026 (1.001-1.035); Urobilinogen,Urine 2.0 mg/dL (0.0-1.0); WBC,Urine 2 /hpf (0-5)
== END | disposition home or self-care (01) ==
LOC: SLAB 05-18 08:10
PROVIDERS: PCP Family Medicine; Referring Provider Surgery; Visit Provider Surgery
DX: Z01.812 Encounter for preprocedural laboratory examination (principal); N40.1 Benign prostatic hyperplasia with lower urinary tract symptoms; R97.20 Elevated prostate specific antigen [PSA]
CPT/HCPCS: 81001

== ENCOUNTER → 2025-03-31 | Outpatient (CLI) | payer OTHER, SELFPAY ==
[2025-03-31 11:04] LABS: INR 1.1 (0.9-1.3); Partial Thromboplastin Time 34.2 Seconds (22.0-36.0); Prothrombin Time 11.4 Seconds (9.0-12.2)
[2025-03-31 11:09] LABS: Anion Gap 7 (7-16); BUN/Creatinine Ratio 7 Ratio (12-20); Blood Urea Nitrogen 6 mg/dL (9-23); Calcium 9.6 mg/dL (8.3-10.6); Carbon Dioxide 28.3 mMol/L (20.0-31.0); Cardiac Risk Estimate 2.5 RATIO (4.0-6.7); Chloride 101 mMol/L (98-107); Cholesterol 140 mg/dL (132-200); Creatinine (Component) 0.9 mg/dL (0.6-1.3); Glucose 103 mg/dL (74-106); HDL Cholesterol 55 mg/dL (40-60); LDL Cholesterol,Calculated 69 mg/dL (0-130); Osmolality,Calculated 269 (275-295); Potassium 4.2 mMol/L (3.4-5.1); Sodium 136 mMol/L (136-145); Triglycerides 82 mg/dL (30-150); eGFR > 60 See Note
[2025-03-31 11:19] LABS: Basophils # (Auto) 0.0 Thou/mm3 (0.0-0.2); Basophils % (Auto) 1 % (0-2.5); Eosinophils # (Auto) 0.2 Thou/mm3 (0.0-0.5); Eosinophils % (Auto) 3 % (0-10); Hematocrit 42.1 % (41.0-53.0); Hemoglobin 14.1 g/dL (13.5-16.0); Immature Granulocytes Auto 0.02 Thou/mm3 (0.00-0.00); Lymphocytes # (Auto) 1.3 Thou/mm3 (1.0-4.8); Lymphocytes % (Auto) 24 % (10-50); Mean Corpuscular HGB Conc 33.5 g/dl (31.0-37.0); Mean Corpuscular Hemoglobin 29.9 pg (25.0-35.0); Mean Corpuscular Volume 89 fL (80-100); Monocytes # (Auto) 0.4 Thou/mm3 (0.0-0.8); Monocytes % (Auto) 7 % (0-12); Neutrophils # (Auto) 3.6 Thou/mm3 (1.8-7.7); Neutrophils % (Auto) 65 % (37-80); Nucleated Red Blood Cell # 0.00 Thou/mm3 (0.00-0.00); Nucleated Red Blood Cell % 0 /100 WBC (0); Platelet Count 249 Thou/mm3 (140-440); RDW Standard Deviation 42.5 fL (35.1-43.9); Red Blood Count 4.72 Miln/mm3 (4.50-5.90); White Blood Count 5.5 Thou/mm3 (3.8-10.6)
== END | disposition home or self-care (01) ==
LOC: COPL 09:39
PROVIDERS: PCP Family Medicine; Referring Provider Family Medicine; Visit Provider Family Medicine
DX: Z01.818 Encounter for other preprocedural examination (principal); Z00.01 Encounter for general adult medical examination with abnormal findings
CPT/HCPCS: 36415; 80048; 80061; 85025; 85610; 85730